=== PATIENT | female | born 1955 | race Caucasian/White ===

== ENCOUNTER 2024-01-16 14:41 | Observation (INO) ==
--- NOTE | 2024-01-16 15:19 | Emergency Department Note ---
Impression & Plan Vertigo, Ataxia ED Provider Note NAME: CHRISTOS ESPINOSA AGE: 68 SEX: F : 1955 ARRIVES VIA: Walk-In INFORMANT: Patient, ED PROVIDER(S): Arturo Goldman DO CHIEF COMPLAINT: Dizziness HPI: The patient is a 68-year-old female who presented to the emergency department for an evaluation of dizziness. The patient describes vertigo type symptoms with room spinning and disequilibrium. She has significant nausea as well as vomiting. She states that she started feeling unwell after dinner last evening. She woke this morning at 1:00 in the morning with severe symptoms. The patient denies having any headache. She denies having any difficulty hearing or tinnitus. She denies having any abdominal pain or chest pain. The patient came directly to the emergency department because symptoms were not improving throughout the day. ROS: See above HPI for pertinent positives & negatives. A total of 10 systems reviewed and were otherwise negative. PAST MEDICAL HISTORY: See Below PAST SURGICAL HISTORY: See Below FAMILY HISTORY: See Below SOCIAL HISTORY: See Below HOME MEDICATIONS: See Below ALLERGIES: See Below VITALS: See Below PHYSICAL EXAMINATION: GENERAL: The patient is awake and alert. The patient is very anxious. EYES: The conjunctivae are clear. The pupils are round and reactive. There is no nystagmus elicited. EARS, NOSE, MOUTH AND THROAT: The nose is without any evidence of any deformity. Mucous membranes are moist. Tympanic membranes were clear. NECK: The neck is nontender and supple. RESPIRATORY: Normal respiratory effort is noted there is no evidence of wheezing rhonchi or rales CARDIOVASCULAR: Regular rate and rhythm noted there no murmurs rubs or gallops normal S1 normal S2. GASTROINTESTINAL: The abdomen is soft. Abdomen is nontender. MUSCULOSKELETAL/EXTREMITIES: There is no evidence of gross deformity full range of motion is noted in the hips and shoulders. SKIN: There is no obvious evidence of any rash. There are no petechiae, pallor or cyanosis noted. NEUROLOGIC: Patient is awake alert and oriented x3 strength is symmetric patellar reflexes are 2+ bilaterally. [id number]-uhfh was symmetric. Food Service Specialist strength was symmetric. There is no facial droop. Speech was clear. MEDICAL DECISION MAKING: The patient is a 68-year-old female who presented to the emergency department for an evaluation of symptoms of vertigo. The patient had very severe vertigo. She was treated in the emergency department in usual fashion. I discussed the patient's laboratory and radiographic studies with her. Her neurologic exam would not be suggestive of a central cause but given the patient's ongoing symptoms and difficulty ambulating I did discuss her condition with the on-call [facility] hospitalist group. They have agreed to evaluate the patient in the emergency department for further management and disposition. Triage Nursing notes reviewed. Prior medical records reviewed Vital Signs: reviewed and remarkable for elevated blood pressure. Differential diagnosis: Benign positional vertigo, dehydration, hypovolemia, anemia, tumor, infection, hypoglycemia, electrolyte abnormalities, cardiac sources, intracerebral event, toxicologic, neurologic, as well as other pathologies. ER treatment provided: See below Diagnostics interpreted by me: ECG: EKG was obtained in the emergency department. My interpretation is normal sinus rhythm at 62 bpm. There was no ectopy. Nonspecific ST segment abnormalities were noted in the inferior and lateral leads. No previous tracing was available. Cardiac Monitoring: An order was placed for continuous cardiac monitoring. The monitor shows a rate of 71 bpm with sinus rhythm. Laboratory studies: As stated above and show below. Imaging studies: See below. Radiographic imaging was reviewed by myself Consultation(s): I discussed this case with Celio who is on for the [facility] hospitalist group. Past Med/Surg History Problem List (Updated 01/16/24 @ 18:40 by Arturo Goldman DO) Ataxia (Acute) Vertigo (Acute) Social History Smoking Status: Never smoker Preferred Language: Ivorian Feels Safe at Home: Yes Allergies Allergies Allergy/AdvReac Type Severity Reaction Status Date / Time No Known Allergies Allergy Unverified 01/16/24 17:59 Home Meds Home Medications Medication Instructions Recorded Confirmed Hair,Skin and Nails 1 tab PO DIRECTED 01/16/24 01/16/24 apple cider vinegar 1 cap PO DIRECTED 01/16/24 01/16/24 loratadine 10 mg tablet (Claritin) 10 mg PO DAILY 01/16/24 01/16/24 multivitamin 1 tab PO DAILY 01/16/24 01/16/24 Results & Data (ED) Vital Signs Vital Signs - 24 hr 01/16/24 14:41 01/16/24 14:41 01/16/24 14:41 Temperature 36.6 C Temperature Source Temporal Artery Scan Pulse Rate 78 Pulse Rate [Apical] Respiratory Rate 18 18 Blood Pressure 170/96 H Blood Pressure [Right Arm] Blood Pressure Mean 120 Blood Pressure Mean [Right Arm] Pulse Oximetry 99 Oxygen Delivery Method Room Air Room Air Sepsis Recent Fever Within 48 Hours No Sepsis New/Unexplained Change in Mental Status N/A Sepsis Action Taken by Nursing No Action Required 01/16/24 16:00 01/16/24 16:03 01/16/24 16:17 Temperature Temperature Source Pulse Rate 72 Pulse Rate [Apical] 71 Respiratory Rate 18 Blood Pressure Blood Pressure [Right Arm] 167/88 H Blood Pressure Mean Blood Pressure Mean [Right Arm] 114 Pulse Oximetry 96 Oxygen Delivery Method Room Air Room Air Sepsis Recent Fever Within 48 Hours Sepsis New/Unexplained Change in Mental Status Sepsis Action Taken by Nursing 01/16/24 19:00 Temperature Temperature Source Pulse Rate Pulse Rate [Apical] 71 Respiratory Rate 18 Blood Pressure Blood Pressure [Right Arm] 165/93 H Blood Pressure Mean Blood Pressure Mean [Right Arm] 117 Pulse Oximetry 98 Oxygen Delivery Method Room Air Sepsis Recent Fever Within 48 Hours Sepsis New/Unexplained Change in Mental Status Sepsis Action Taken by Long-Term Medications Current Medication List: was personally reviewed by me Laboratory Data Attestation: I reviewed the patient's lab results. 01/16/24 15:38 01/16/24 15:38 Lab Results 01/16/24 01/16/24 Range/Units 15:38 18:17 WBC 7.08 (4.8-10.8) K/ul RBC 5.25 (4.20-5.40) M/uL Hgb 14.9 (12.0-16.0) g/dl Hct 44.1 (37.0-47.0) % MCV 84.0 (80.0-100.0) fL MCH 28.4 (25.0-34.0) pg MCHC 33.8 (32.0-36.0) g/dL RDW Std Deviation 37.2 (36.4-46.3) fL RDW Coeff of Bettina 12.2 (11.5-14.5) % Plt Count 245 (130-400) K/uL MPV 11.2 (9.4-12.4) fL Immature Gran % (Auto) 0.3 % Neut % (Auto) 83.3 % Lymph % (Auto) 12.6 % [place] % (Auto) 3.2 % Eos % (Auto) 0.3 % Baso % (Auto) 0.3 % Neut # (Auto) 5.90 (1.40-6.50) K/uL Lymph # (Auto) 0.89 L (1.20-3.40) K/uL [place] # (Auto) 0.23 (0.11-0.59) K/uL Eos # (Auto) 0.02 (0.00-0.50) K/uL Baso # (Auto) 0.02 (0.00-0.20) K/uL Immature Gran # (Auto) 0.02 (0.01-0.20) K/uL Sodium 136 (136-145) mmol/L Potassium 4.0 (3.5-5.1) mmol/L Chloride 102 (98-107) mmol/L Carbon Dioxide 24 (21-32) mmol/L Anion Gap 10 (3-11) BUN 15 (6-23) mg/dl Creatinine 0.58 L (0.6-1.2) mg/dl Est Cr Clr Drug Dosing Not Reportable Est GFR ( Amer) 111.3 ml/min Est GFR (Non-Af Amer) 96.1 ml/min BUN/Creatinine Ratio 25.9 H (10-20) Glucose 145 H (70-99(Fasting)) mg/dl Calcium 10.3 (8.6-10.3) mg/dl Total Bilirubin 0.6 (0.2-1.0) mg/dl AST 22 (13-39) U/L ALT 20 (7-52) U/L Alkaline Phosphatase 103 (34-104) U/L Troponin I High Sens 3.3 (0-14) pg/ml Total Protein 8.0 (6.0-8.3) gm/dl Albumin 4.9 (3.4-5.0) gm/dl Globulin 3.1 (2.5-4.0) gm/dl Albumin/Globulin Ratio 1.6 (0.9-2) Urine Color Yellow Urine Appearance Clear (Clear) Urine pH 8.5 H (4.5-7.5) Ur Specific [place] 1.017 (1.000-1.030) Urine Protein Trace H (Negative) Urine Glucose (UA) Negative (Negative) Urine Ketones 1+ H (Negative) Urine Blood Negative (Negative) Urine Nitrite Negative (Negative) Urine Bilirubin Negative (Negative) Urine Urobilinogen Negative (Negative) Ur Leukocyte Esterase Negative (Negative) Urine WBC (Auto) 0-5 (0-5) /hpf Urine RBC (Auto) 0-2 (0-2) /hpf U Hyaline Cast (Auto) 0-2 (0-2) /lpf U Epithel Cells (Auto) 0-2 (0-2) /hpf Urine Bacteria (Auto) None Seen (None Seen) Administered Medications Discontinued Medications Sodium Chloride (Nss) 500 mls @ 999 mls/hr IV .Q31M MANUEL Stop: 01/16/24 15:45 Last Infusion: 01/16/24 18:17 Dose: Infused Documented By: Admin: 01/16/24 15:31 Dose: 999 mls/hr Documented By: [facility] Lorazepam (Lorazepam 1 Mg/1 Ml Syr Ed Inj Use) 1 mg IV ONE STA Stop: 01/16/24 15:09 Last Admin: 01/16/24 15:32 Dose: 1 mg Documented By: [facility] Meclizine HCl (Meclizine Hcl 25 Mg Tab) 25 mg PO NOW STA Stop: 01/16/24 15:09 Last Admin: 01/16/24 15:31 Dose: 25 mg Documented By: [facility] Ondansetron HCl (Ondansetron Inj 2 Mg/Ml 2 Ml Vial) 4 mg IV NOW STA Stop: 01/16/24 15:09 Last Admin: 01/16/24 15:31 Dose: 4 mg Documented By: [facility] Imaging Data Attestation: I personally reviewed and interpreted this imaging study as follows: My Impression: 1 view chest x-ray was obtained in the emergency department. My interpretation is no free air or definite infiltrate, final report below. CT of the brain was obtained in the emergency department. My interpretation is no intracranial hemorrhage or mass effect, final report below. Radiologist's Impression: Chest X-Ray 01/16/24 15:08 XR chest 1V portable CLINICAL HISTORY: vertigo TECHNIQUE: Single frontal radiograph of the chest was obtained. Comparison: None available at the time of this dictation. FINDINGS: No lines and tubes are seen. Cardiomegaly is noted. The lungs are clear. No evidence of pleural effusion or pneumothorax. IMPRESSION: No acute chest disease. Cardiomegaly is noted. ACT 112: Negative or not required by law. Electronically signed by: Luis E Olvera M.D. 01/16/2024 3:[address] 01/16/24 15:08 CT OF THE HEAD WITHOUT CONTRAST CLINICAL HISTORY: Vertigo. COMPARISON STUDY: No previous studies for comparison. CT DOSE: 547.75 mGy.cm TECHNIQUE: Helical axial images of the head were obtained without IV contrast. Automated exposure control was utilized for the study. A dose lowering technique was utilized adhering to the principles of ALARA. FINDINGS: No acute intracranial hemorrhage, midline shift or mass effect is present. White matter hypodensities favor small vessel disease. The ventricular system is unremarkable. The basal cisterns are patent. No extra-axial collections are present. There are no findings to suggest acute dural sinus thrombosis or acute territorial infarct. No significant calvarial abnormalities are present. There is trace fluid within the left mastoid air cells. IMPRESSION: No acute intracranial findings. ACT 112: Negative or not required by law. Electronically signed by: Mario Manriquez M.D. 01/16/2024 3:56 PM Discharge Plan Visit Data Chief Complaint: Dizziness Stated Complaint: DIZZINESS, NAUSEA, VOMITNG ED Provider: Arturo Goldman Discharge Problem: Vertigo, Ataxia Patient Disposition: Being Evaluated by Hospitalist Forms Stand Alone Forms: [facility] Prescriptions Prescriptions: No Action multivitamin [Multi-Vitamins] Tablet 1 tab PO DAILY loratadine [Claritin] 10 mg Tablet 10 mg PO DAILY Rx Instructions: OTC Hair,Skin and Nails 1 tab PO DIRECTED Rx Instructions: otc, unknown dose. apple cider vinegar 1 cap PO DIRECTED Rx Instructions: otc, unknown dose. Referrals Referrals: PCP,NO [Physician] -
[2024-01-16] MEDS: MECLIZINE HCL 25 MG TAB PO STA (15:31)
[2024-01-16] MEDS: ONDANSETRON INJ 2 MG/ML 2 ML VIAL IV STA (15:31)
[2024-01-16] MEDS: SODIUM CHLORIDE 0.9% 500 ML IV SCH (15:31)
[2024-01-16] MEDS: LORazepam 1 MG/1 ML SYR ED Inj Use IV STA (15:32)
[2024-01-16 15:58] LABS: Basophils # (auto) 0.02 K/uL (0.00-0.20); Basophils % (auto) 0.3 %; Eosinophils # (auto) 0.02 K/uL (0.00-0.50); Eosinophils % (auto) 0.3 %; Hematocrit (blood only) 44.1 % (37.0-47.0); Hemoglobin 14.9 g/dl (12.0-16.0); Immature Granulocytes # (auto) 0.02 K/uL (0.01-0.20); Immature Granulocytes % (auto) 0.3 %; Lymphocytes # (auto) 0.89 K/uL (1.20-3.40); Lymphocytes % (auto) 12.6 %; Mean Corpuscular Hemoglobin 28.4 pg (25.0-34.0); Mean Corpuscular Hgb Conc 33.8 g/dL (32.0-36.0); Mean Platelet Volume 11.2 fL (9.4-12.4); Monocytes # (auto) 0.23 K/uL (0.11-0.59); Monocytes % (auto) 3.2 %; Neutrophils % (auto) 83.3 %; Platelet Count 245 K/uL (130-400); RDW Coefficient of Variation 12.2 % (11.5-14.5); RDW Standard Deviation 37.2 fL (36.4-46.3); Red Blood Count 5.25 M/uL (4.20-5.40); White Blood Count 7.08 K/ul (4.8-10.8)
--- NOTE | 2024-01-16 15:58 | CT Scan Report ---
CT OF THE HEAD WITHOUT CONTRAST CLINICAL HISTORY: Vertigo. COMPARISON STUDY: No previous studies for comparison. CT DOSE: 547.75 mGy.cm TECHNIQUE: Helical axial images of the head were obtained without IV contrast. Automated exposure con trol was utilized for the study. A dose lowering technique was utilized adhering to the principles o f ALARA. FINDINGS: No acute intracranial hemorrhage, midline shift or mass effect is present. White matter hyp odensities favor small vessel disease. The ventricular system is unremarkable. The basal cisterns are patent. No extra-axial collections are present. There are no findings to suggest acute dural sinus t hrombosis or acute territorial infarct. No significant calvarial abnormalities are present. There is trace fluid within the left mastoid air cells. IMPRESSION: No acute intracranial findings. ACT 112: Negative or not required by law. Electronically signed by: Mario Manriquez M.D. 01/16/2024 3:56 PM
[2024-01-16 16:14] LABS: Alanine Aminotransferase 20 U/L (7-52); Albumin Globulin Ratio 1.6 (0.9-2); Albumin Level 4.9 gm/dl (3.4-5.0); Alkaline Phosphatase 103 U/L (34-104); Anion Gap 10 (3-11); Aspartate Aminotransferase 22 U/L (13-39); BUN Creatinine Ratio 25.9 (10-20); Bilirubin,Total 0.6 mg/dl (0.2-1.0); Blood Urea Nitrogen 15 mg/dl (6-23); Calcium 10.3 mg/dl (8.6-10.3); Carbon Dioxide 24 mmol/L (21-32); Chloride 102 mmol/L (98-107); Est GFR (African American) 111.3 ml/min; Est GFR (Non-African American) 96.1 ml/min; Globulin 3.1 gm/dl (2.5-4.0); Glucose 145 mg/dl (70-99(Fasting)); Sodium 136 mmol/L (136-145)
[2024-01-16 16:20] LABS: Troponin I High Sensitivity 3.3 pg/ml (0-14)
[2024-01-16 19:03] LABS: Appearance Urine Clear (Clear); Bacteria Urine Automated None Seen (None Seen); Bilirubin Urine Negative (Negative); Blood Urine Negative (Negative); Cast Urine Automated 0-2 /lpf (0-2); Color Urine Yellow; Epithelial Cell Urine Auto 0-2 /hpf (0-2); Glucose Urine UA Negative (Negative); Ketones Urine 1+ (Negative); Leukocyte Esterase Urine Negative (Negative); Nitrite Urine Negative (Negative); Protein Urine Trace (Negative); RBC Urine Automated 0-2 /hpf (0-2); Specific Gravity Urine 1.017 (1.000-1.030); Urobilinogen Urine Negative (Negative); WBC Urine Automated 0-5 /hpf (0-5); pH Urine 8.5 (4.5-7.5)
--- NOTE | 2024-01-16 19:49 | History & Physical Report ---
Date of Service January 16, 2024 Assessment & Plan (1) Benign paroxysmal positional vertigo of right ear: (2) Hyperglycemia, unspecified: Plan Patient is a 68-year-old female with acute onset of vertigo and ataxia. Her symptoms are significant to the point where she has significant nausea and vomiting and unable to ambulate safely at home. She requires hospital level care for ongoing interventions, studies and treatments. Admit to a monitored unit, low suspicion for arrhythmia can consider discontinuing within 24 hours Schedule meclizine and Valium to provide symptom control of her significant vertigo PT/OT evaluation for Silviano maneuvers and vestibular evaluation MRI of the brain to rule out other acute etiology for the patient's symptoms, highly suspect patient has BPV with a positive Amee-Hallpike maneuver when looking to the right Check TSH Check hemoglobin A1c, nonfasting glucose of 145 in the ED Antiemetics as needed Daughter and at bedside, updated the plan of care. History of Present Illness Chief Complaint: Some dizziness and ataxia Primary Care Provider: Terence Coombs MD Patient is a 68-year-old female presented to the emergency department earlier this afternoon with complaints of some dizziness and difficulty walking. In the emergency room laboratory and imaging evaluation was unremarkable. She was treated with meclizine and Zofran and lorazepam. Her symptoms improved slightly but she still had significant unsteadiness and gait and still somewhat nauseated. She was referred to our service for further evaluation. Time my evaluation the patient was sitting still and feeling better. She states that she noticed the symptoms started around 2 AM when she woke up to go to the bathroom. She is found it very difficult to walk to the bathroom and unsteady with her gait. She does not describe classic vertigo but describes as though she felt as though she was moving back and forth. She essentially stayed in bed throughout the rest of the patch setter. She was nauseated earlier and took some Tums that her gave her but really could not get up out of bed and walk very well and that is what prompted evaluation emergency room. She denies any fever or chills, no cough or cold symptoms, no upper respiratory infection symptoms. She has never had anything like this before. She denies any unilateral weakness. Family at the bedside denies any slurred speech or facial droop. She states that really just this feels as though her balance is off and has some poor coordination. No new problems with her bowels or bladder and was feeling well up until this morning. Denies any other real significant medical history. Allergies Allergy/AdvReac Type Severity Reaction Status Date / Time No Known Allergies Allergy Unverified 01/16/24 17:59 Home Medications Medication Instructions Recorded Confirmed Type Hair,Skin and Nails 1 tab PO DIRECTED 01/16/24 01/16/24 History apple cider vinegar 1 cap PO DIRECTED 01/16/24 01/16/24 History loratadine 10 mg tablet (Claritin) 10 mg PO DAILY 01/16/24 01/16/24 History multivitamin 1 tab PO DAILY 01/16/24 01/16/24 History Past Med/Surg History Problem List (Updated 01/16/24 @ 19:49 by Efren Pritchett DO) Hyperglycemia, unspecified Benign paroxysmal positional vertigo of right ear Ataxia (Acute) Vertigo (Acute) Social History Smoking Status: Never smoker Preferred Language: Slovak Feels Safe at Home: Yes Review of Systems Review of Systems: Pertinent positive and negative review of systems as mentioned in the HPI Physical Exam Physical Exam: Constitutional: Alert, ill in appearance, nontoxic HEENT: Mucous membranes moist. Sclera clear Neck: Soft, no adenopathy Lungs: Clear to auscultation, decreased, no wheezes rales or rhonchi CV: S1-S2, regular Abdomen: Soft, nontender, nondistended Extremities: No significant edema Musculoskeletal: No significant joint tenderness Neuro: Positive Amee-Hallpike maneuver when looking to the right with nystagmus, reproduction of vertigo, nausea and vomiting. No other focal findings Psych: Cooperative, normal mood Results & Data Results & Data Vital Signs (Past 12 Hours) Vital Signs Temp Pulse Pulse Resp BP BP Pulse Ox 01/16/24 19:00 71 18 165/93 H 98 01/16/24 16:17 71 18 167/88 H 96 01/16/24 16:03 72 01/16/24 16:00 01/16/24 14:41 18 01/16/24 14:41 01/16/24 14:41 36.6 C 78 18 170/96 H 99 O2 Del Method 01/16/24 19:00 Room Air 01/16/24 16:17 Room Air 01/16/24 16:03 01/16/24 16:00 Room Air 01/16/24 14:41 01/16/24 14:41 Room Air 01/16/24 14:41 Room Air Diagnostic Findings Reviewed imaging, laboratory and diagnostic studies. Pertinent findings as below. Personally reviewed EKG, normal sinus rhythm Personally reviewed chest x-ray no acute cardiopulmonary abnormalities Reviewed head CT report, no acute abnormalities Urinalysis unremarkable Basic metabolic profile significant for some hyperglycemia CBC unremarkable Code Status & VTE Plan VTE Prophylaxis Plan VTE Prophylaxis will be ordered: Yes
[2024-01-16] MEDS ORDERED: PROMETHAZINE 6.25 MG/50.25 ML BAG IV PRN (21:31)
[2024-01-16] MEDS ORDERED: ACETAMINOPHEN 325 MG TAB PO PRN (21:31)
[2024-01-16] MEDS: MECLIZINE HCL 25 MG TAB PO SCH (21:50)
[2024-01-16] MEDS: ONDANSETRON INJ 2 MG/ML 2 ML VIAL IV PRN (21:50)
[2024-01-16] MEDS: diazePAM 2 MG TABLET PO SCH (21:50)
[2024-01-16] MEDS: SODIUM CHLORIDE 0.9% 1,000 ML IV SCH (21:50)
[2024-01-17 07:05] LABS: BUN Creatinine Ratio 18.2 (10-20); Calcium 8.6 mg/dl (8.6-10.3); Creatinine Clr Calc Pharmacy 85.1 ml/min; Est GFR (African American) 113.3 ml/min; Est GFR (Non-African American) 97.7 ml/min; Potassium 3.4 mmol/L (3.5-5.1)
[2024-01-17 07:20] LABS: Thyroid Stimulating Hormone 1.481 uIu/ml (0.300-4.500)
[2024-01-17 07:59] LABS: Estimated Average Glucose 128 mg/dl; Hemoglobin A1C 6.1 % (4.5-5.6)
--- NOTE | 2024-01-17 08:55 | Electrocardiogram Report ---
Test Reason : Blood Pressure : */* mmHG Vent. Rate : 62 BPM Atrial Rate : 62 BPM P-R Int : 140 ms QRS Dur : 82 ms QT Int : 472 ms P-R-T Axes : 60 65 39 degrees QTcB Int : 479 ms Normal sinus rhythm Left atrial enlargement Diffuse Minor Nonspecific ST abnormality Abnormal ECG No previous ECGs available Confirmed by Owne Scott ([id number]) on 01/17/2024 8:55:55 AM Referred By: Confirmed By: Owen Scott
--- NOTE | 2024-01-17 09:19 | Hospitalist Progress Note ---
Date of Service January 17, 2024 Assessment & Plan (1) Benign paroxysmal positional vertigo of right ear: (2) Pre-diabetes: (3) Hypokalemia: Plan Patient is a 68-year-old female who presented to the ED with acute onset of vertigo and ataxia. CT head with no acute abnormality. Acute onset vertigo/ataxia- Amee Hallpike positive in ED. TSH 1.4. No evidence of infection. Suspected BPPV and on trial of meclizine/valium with significant improvement. MRI brain negative for acute pathology. PT OT eval pending. Pre diabetes- A1c 6.1%. Diet control and follow up with PCP for further management. Discussed with patient at bedside. Hypokalemia- repleted, recheck in am DVT ppx- sc heparin Dispo- Discharge home pending PT OT eval. Time spent- 35 mins Admission and Anticipated Discharge Date Admission Date: January 16, 2024 Subjective Patient was seen and examined at bedside. She feels much better. She had MRI brain which was negative. States she has no more N/V and tolerating diet well. She also reports she ambulated without issues. Review of Systems Review of Systems: All systems reviewed & are unremarkable except as noted in Subjective Physical Exam Physical Exam: General: Sitting comfortably in bed, not in distress, on room air HEENT: EOMI, REBECA, MMM Chest: Clear breath sounds bilaterally, no wheezes or crackles CVS: Regular rate and rhythm, normal heart sounds, no murmur Abdomen: Soft, non tender, not distended, normal bowel sounds Neuro: Awake, alert, oriented, conversing well, non focal. She was able to turn her head sideways without any vertigo. Extremities: No cyanosis, clubbing or edema Results & Data Results & Data Vital Signs (Past 12 Hours) Vital Signs Temp Pulse Pulse Pulse Resp BP BP 01/17/24 07:40 36.8 C 60 18 143/77 H 01/17/24 07:25 56 L 01/17/24 01:21 36.7 C 61 16 132/74 01/16/24 21:55 66 01/16/24 21:25 36.3 C L 68 20 174/81 H 01/16/24 21:20 67 Pulse Ox O2 Del Method 01/17/24 07:40 96 Room Air 01/17/24 07:25 01/17/24 01:21 95 Room Air 01/16/24 21:55 01/16/24 21:25 99 Room Air 01/16/24 21:20 Laboratory Results Short CBC 01/16/24 Range/Units 15:38 WBC 7.08 (4.8-10.8) K/ul Hgb 14.9 (12.0-16.0) g/dl Hct 44.1 (37.0-47.0) % Plt Count 245 (130-400) K/uL BMP 01/16/24 01/17/24 15:38 06:15 Sodium 136 140 Potassium 4.0 3.4 L Chloride 102 109 H Carbon Dioxide 24 24 BUN 15 10 Creatinine 0.58 L 0.55 L Glucose 145 H 91 Calcium 10.3 8.6 Liver Function 01/16/24 Range/Units 15:38 Total Bilirubin 0.6 (0.2-1.0) mg/dl AST 22 (13-39) U/L ALT 20 (7-52) U/L Alkaline Phosphatase 103 (34-104) U/L Albumin 4.9 (3.4-5.0) gm/dl Urine 01/16/24 Range/Units 18:17 Urine Color Yellow Urine Appearance Clear (Clear) Urine pH 8.5 H (4.5-7.5) Ur Specific [place] 1.017 (1.000-1.030) Urine Protein Trace H (Negative) Urine Glucose (UA) Negative (Negative)
[2024-01-17] MEDS: POTASSIUM CHLORIDE 10 MEQ TABCR PO ONE (09:30)
[2024-01-17] MEDS: GADOBUTROL 10ML VIAL IV ONE (10:09)
--- NOTE | 2024-01-17 10:28 | Magnetic Resonance Report ---
MRI OF THE BRAIN COMBO CLINICAL HISTORY: Vertigo COMPARISON STUDY: CT of the brain dated 01/16/2024. TECHNIQUE: MRI of the brain was performed utilizing various T1 and T2-weighted sequences in the axial , sagittal, and coronal planes. Contrast-enhanced sequences were acquired following the administratio n of 6 cc of Gadavist. FINDINGS: Brain parenchyma: There is [id number] microangiopathic change. There is no hemorrhage or mass e ffect. There is no restricted diffusion to suggest acute ischemia. No enhancing mass lesion is identi fied on the postcontrast images. Ventura-white matter differentiation is preserved. No extra-axial fluid collection is seen. The cerebellar tonsils are normal in configuration. Ventricles, sulci, and cisterns: Normal in configuration. Pituitary and sella: Unremarkable. Intracranial vasculature: Normal flow voids are maintained at the skull base. Orbits: The bony orbits are grossly intact. Orbital contents are normal in appearance noting bilatera l colobomas. Sinuses and mastoids: There are bilateral mastoid effusions, left larger than right. The paranasal si nuses are clear. Calvarium: Unremarkable. Cervical cord: Partially visualized cervical spinal cord is normal in morphology and signal intensity . IMPRESSION: No acute intracranial abnormality is identified. ACT 112: Negative or not required by law. Electronically signed by: King Barton M.D. 01/17/2024 10:25 AM
--- OUTSIDE RECORDS SUMMARY | 2024-01-17 14:09 | External Medical Summary | Summary of Care ---
Author Name Unknown Organization [facility] Address [address] [place] [address] Phone [phone] Care Team Providers Care Living Supervisor Name Role Phone Terence Coombs MD Primary Care Provide r Reason for Visit * Reason Comments Re-Check Encounter Details Date Type Department Care Team ([facility] st Contact Info) Description 11/14/2023 4:00 PM EDT Office Visit Family Medicine [address] [phone] Terence Coombs MD [address] [place] [address] [place] [id number] Allergic rhinitis due to other allergic trigger, unspecified seasonality*; Encounter for screening mammogram for breast cancer; Dyslipidemia, goal LDL below 160 Allergies No known active allergiesdocumented as of this encounter (statuses as of 11/14/2023) Medications Medication Sig Dispensed Refills Start Date End Date Status Loratadine 10 MG Oral Tablet Take 1 Tablet by mouth in the morning. Active Multiple Vitamins-Minerals (HAIR SKIN AND NAILS FORMULA) TABS Take by mouth. Active documented as of this encounter (statuses as of 11/14/2023) Active Problems Problem Noted Date Diagnosed Date History of basal cell carcinoma 11/15/2022 Hx of nonmelanoma skin cancer 12/20/2019 Overview: basal cell carcinoma (L lateral upper cheek 12/2019) H/O dysplastic nevus 12/20/2019 Overview: Mildly atypical nevus (L lateral breast) ADVANCE DIRECTIVE INFORMATION 06/11/2007 Overview: No, Advance Directive brochure given to patient. Dyslipidemia, goal LDL below 160 Overview: ICD-10 update of inactive term Allergic rhinitis documented as of this encounter (statuses as of 11/14/2023) Immunizations Name Administration Dates Next Due COVID-19 mRNA, LNP-s, No Pre serve, 2-Dose Series (Moderna) 11/06/2020,10/09/2020 Seasonal Influenza, PF, 6 M & above, IM , (FluLaval or Fluzone) 06/11/2019 Seasonal Influenza, Split, IIV3, With Preserve, Inj 03/20/2015 TDAP (age 10 and older)(Boostrix) 10/01/2018 documented as of this encounter Social History Tobacco Use Types Packs/Day Years Used Date Smoking Tobacco: Never Smokeless Tobacco: Never Tobacco Cessation:Counseling Given: Not Answered Alcohol Use Standard Drinks/Week Comments No 0 (1 standard drink = 0.6 oz pur e alcohol) PHQ-2 Answer Date Recorded PHQ-2 Score 0 10/07/2019 Sex and Gender Information Value Date Recorded Sex Assigned at Not on file Gender Identity Not on file Sexual Orientation Not on file Job Start Date Occupation Industry Not on file Not on file Not on file documented as of this encounter Last Filed Vital Signs Vital Sign Reading Time Taken Comments Blood Pressure 136/80 11/14/2023 3:50 PM EDT Pulse 85 11/14/2023 3:50 PM EDT Temperature 35.7 C (96.2 F) 11/14/2023 3:50 PM ED T Respiratory Rate 16 11/14/2023 3:50 PM EDT Oxygen Saturation - - Inhaled Oxygen Concentration - - Weight 60.8 kg (134 lb 2 oz) 11/14/2023 3:50 PM EDT Height - - Body Mass Index 23.01 11/15/2022 10:23 AM EDT documented in this encounter Progress Notes * Terence Coombs MD - 11/14/2023 3:53 PM EDT Subjective: Vidhi Beal is a 68 year old female. Chief Complaint Patient presents with Re-Check HPI: Brief Clinical History Ms. Beal is a 68 year old woman last seen in Family Medicine 11 months ago (11-15-22). She is not due for eval of any conditions. Would like to have mammogram done at [facility]. Usually has to get extra views done there anyway. Was seen at Urgent Care in September with ear clogging and not being able to hear and nasal congestion. Was given amoxicillin and had her ears cleaned out and is feeling better now. Taking loratadine for allergies and is working well. Denies any complaints today. Was worried her BP would be high because she was rushing to get to herappointment on time. Declines vaccines. Results for orders placed or performed in visit on 02/10/23 SURGICAL PATHOLOGY Result Value Ref Range Final Diagnosis A. Skin, R upper arm, shave: Benign melanocytic nevus with congenital features Clinical History See Order Comments Order Comments 1A. R upper arm-3x3mm light-medium brown irregular macule. Nevus, r/o atypia Gross Description A. Skin. shave Received in formalin with a container labeled with "Vidhi Beal", "[id number]", "1955" and " right upper arm". Received is a 0.8 x 0.6 cm skin shave. The skin surface has a nolasco to light brown, centrally located, irregularly-shaped, dull macule measuring 0.3 x 0.3 cm, which extends to within 0.1 cm of the closest margin. The underlying tissue is inked. The specimen is trisected and submitted in cassette A1. Gross By: Photographic images and diagrams represent anaya findings in this case; they are not intended to replace a complete review of the final diagnostic report. The following statement applies to Flow Cytometry, Histology, In situ Hybridization Assays and Molecular Genetics. This test was developed and performed at [facility] and its performance characteristics determined by [employer]. It has not been cleared or approved by the U.S. Food and Drug Administration. The FDA has determined that such clearance or approval is not necessary. This test is used for clinical purposes. It should not be regarded as investigationalor for research. Special stains, including histochemical stains, and studies using immunologic and DAVIS methodology (where applicable) are performed with appropriate positive and negative control reactions. PHM: Patient Active Problem List Diagnosis ADVANCE DIRECTIVE INFORMATION Allergic rhinitis Hx of nonmelanoma skin cancer H/O dysplastic nevus History of basal cell carcinoma Current Outpatient Medications Medication Sig Dispense Refill Loratadine 10 MG Oral Tablet Take 1 Tablet by mouth in the morning. Multiple Vitamins-Minerals (HAIR SKIN AND NAILS FORMULA) TABS Take by mouth. No current facility-administered medications for this visit. Past Medical History: Diagnosis Date Allergic rhinitis Hyperlipidemia LDL goal < 130 Past Surgical History: Procedure Laterality Date , INDUCED BY D&E BIOPSY OF BREAST, OPEN Left 1980 DELIVERY 1984 COLONOSCOPY, DIAGNOSTIC (RECTUM) 11/17/2009 wnl COLONOSCOPY, DIAGNOSTIC (RECTUM) 02/16/2021 normal, repeat 10 yrs / COLONOSCOPY FLEXIBLE PROXIMAL DIAGNOSTIC performed by Ebony Ortega MD at END[facility]COPY [facility] INFORMATION 1981 breast biopsy MAMMOGRAM SCREENING BILATERAL 08/15/2012 heterogeneously dense right breast cysts, category 2 benign REMOVAL OF TONSILS, UNDER AGE 14 Social History Socioeconomic History Marital status: Spouse name: Not on file Number of children: Not on file Years of education: Not on file Highest education level: Not on file Occupational History Not on file Tobacco Use Smoking status: Never Smokeless tobacco: Never Vaping Use Vaping status: Never Used Substance and Sexual Activity Alcohol use: No Drug use: No Sexual activity: Yes Other Topics Concern Not on file Social History Narrative Not on file Social Determinants of Health Financial Resource Strain: Not on file Food Insecurity: Not on file Transportation Needs: Not on file Physical Activity: Not on file Stress: Not on file Social Connections: Not on file Intimate Partner Violence: Not on file Housing Stability: Not on file Review of patient's allergies indicates: No Known Allergies Lipid Panel Results: Results for orders placed or performed in visit on 11/12/21 LIPID PANEL WITH DIRECT LDL IF TG IS HIGH Result Value Ref Range Triglycerides 160 <=174 mg/dL Cholesterol 246 (H) <200 mg/dL HDL Cholesterol 63 >49 mg/dL Non-HDL Cholesterol 183 (H) <=159 mg/dL LDL Cholesterol 151 (H) <=129 mg/dL Objective: BP 136/80 | Pulse 85 | Temp 35.7 C (96.2 F) (Tympanic) | Resp 16 | Wt 60.8 kg (134 lb 2 oz) | BMI 23.01 kg/m | BSA 1.66 m Physical Exam: General: alert, healthy, no distress, well nourished, and well developed Head: Normocephalic, No masses, lesions, tenderness or abnormalities Eye Exam: PERRLA, extraocular movements intact, conjunctiva are pink and non- injected, sclera clear Ears: External ears normal, Canals clear, TM's Normal Nose: no mucosal erythema, no mucosal edema, no purulent discharge Oropharynx: no exudate, no erythema, lips, buccal mucosa, and tongue normal, and mucous membranes are moist Neck: supple, no adenopathy, no bruits Heart: regular rate & rhythm, no murmur, and no gallops Lungs: chest symmetric with normal AP diameter, no chest deformities noted, no chest wall tenderness, lungs clear to auscultation Extremities: no joint deformities, effusion, or inflammation, no edema, no clubbing, no cyanosis Neuro Exam: alert & oriented x 3 with fluent speech, no focal motor/sensory deficits, gait normal Extensive ROS Constitutional (f/c/wt/vision/hearing): see above hpi Resp (cough/sob/mohr): Negative CV (cp/palp/fluttering/diaphoresis/mohr/pnd):Negative GI (n/v/d/hrtburn): Negative Endo (hair/cold or heat intol/ 3 p's): Negative Neuro (shaking/weak/fatigu/parasthesi/): Negative Skin (rash/easy bruis/xerosis): Negative Psy (si/hi/halluc/): Negative (nocturia/hesit/drib/sexual review): Negative Lymph (swollen glands/b sx's/: Negative ASSESSMENT: Allergic rhinitis due to other allergic trigger, unspecified seasonality (Primary)--controlled withloratadine. Encounter for screening mammogram for breast cancer - MAMMOGRAM SCREENING JARETT BILATERAL; Future; Expected date: 01/01/2024 Dyslipidemia, goal LDL below 160--reviewed prior labs. Declines labs today or medication. Follow Up: Return in 1 year (on 11/13/2024) for change mammogram lui from MV to GW per pt request , Clinic Visit. | For: change mammogram lui from MV to GW per pt request , Clinic Visit | Check-out note: change mammogram lui from MV to GW per pt request PLAN: Continue present medication(s): Study(ies) ordered: Screening mammogram. Patient education: Discussed vaccines and declines. Continue loratadine as needed for allergies. Follow up: in 1 year(s). Terence Coombs MD documented in this encounter Nursing Notes * Katja Tsang LPN - 11/14/2023 3:47 PM EDT 1 yr check documented in this encounter Plan of Treatment Upcoming Encounters Date Type Department Care Team (Late st Contact Info) Description 01/01/2024 8:15 AM EDT Imaging Radiology [address] [place] [id number] 03/25/2024 8:40 AM EDT Office Visit [address] [address] Albina Olivares PA-C [address] [place] [address] [place] [id number] 11/26/2024 4:00 PM EDT Office Visit Family Medicine [address] [place] [phone] Terence Coombs MD [address] [place] [address] [place] [id number] Scheduled Orders Name Type Priority Associated Diagnoses Orde r Schedule MAMMOGRAM SCREENING JARETT BILATERAL Medical Imaging Routine Encounter for screening mammogram for breast cancer Expected: 01/01/2024 (Approximate), Expires: 12/13/2024 Scheduled Procedures Name Priority Associated Diagnoses Date/Ti me COLONOSCOPY FLEXIBLE PROXIMAL DIAGNOSTIC Recall Screen for colon cancer Health Maintenance Due Date Last Done Comments DXA Scan 1957 Cologuard 2002 Fecal Occult Blood Test 2002 Sigmoidoscopy 2002 Zoster Vaccines (1 of 2) 2007 Depression Screening 10/06/2020 10/07/2019 Pneumococcal Vaccine: 65+ Years (1 of 1 - PCV) 2022 COVID-19 Vaccine (3 - 2022- season) 2023 11/06/2020, 10/09/2020 Mammogram 01/18/2024 01/17/2023, 12/31, 12/26/2022, Additional history exists Influenza Vaccine (FLU shot) (Season Ended) 2024 06/11/2019, 03/20/2015 Lipid Panel 11/12/2026 11/12/2021, 07/2018, 08/11/2015, Additional history exists DTaP,Tdap,and Td Vaccines (2 - Td or Tdap) 10/01/2028 10/01/2018 Colonoscopy 02/16/2031 02/16/2021, 01/31, 11/17/2009 Colorectal Cancer Screening 02/16/2031 Pap Smear Discontinued 10/13/2020, 04/02, 04/04/2014, Additional history exists GARDASIL-HPV IMMUNIZATION SERIES Aged Out No longer eligible based on patient's age to complete this topic Hepatitis B Aged Out No longer eligi ble based on patient's age to complete this topic MENINGOCOCCAL (MENACTRA/MENVEO) Aged Out No longer eligible based on patient's age to complete this topic documented as of this encounter Medical Devices Not on filedocumented as of this encounter Visit Diagnoses Diagnosis Allergic rhinitis due to other allergic trigger, unspecified seasonality- Primary Encounter for screening mammogram for breast cancer Dyslipidemia, goal LDL below 160 Other and unspecified hyperlipidemia documented in this encounter Care Teams Living Supervisor Relationship Specialty Start Date End Date Terence Coombs MD [address] [place] [address] [place] [id number] PCP - General Family Medicine 04/12/15 documented as of this encounter
[2024-01-17 15:11] VITALS: PULSE 68
--- NOTE | 2024-01-17 15:11 | Discharge Summary ---
Date of Service January 17, 2024 Admission HPI Per Admitting Provider Patient is a 68-year-old female presented to the emergency department earlier this afternoon with complaints of some dizziness and difficulty walking. In the emergency room laboratory and imaging evaluation was unremarkable. She was treated with meclizine and Zofran and lorazepam. Her symptoms improved slightly but she still had significant unsteadiness and gait and still somewhat nauseated. She was referred to our service for further evaluation. Time my evaluation the patient was sitting still and feeling better. She states that she noticed the symptoms started around 2 AM when she woke up to go to the b athroom. She is found it very difficult to walk to the bathroom and unsteady with her gait. She does not describe classic vertigo but describes as though she felt as though she was moving back and forth. She essentially stayed in bed throughout the rest of the die fitter. She was nauseated earlier and took some Tums that her gave her but really could not get up out of bed and walk very well and that is what prompted evaluation emergency room. She denies any fever or chills, no cough or cold symptoms, no upper respiratory infection symptoms. She has never had anything like this before. She denies any unilateral weakness. Family at the bedside denies any slurred speech or facial droop. She states that really just this feels as though her balance is off and has some poor coordination. No new problems with her bowels or bladder and was feeling well up until this morning. Denies any other real significant medical history. Admission Exam Per Admitting Provider Constitutional: Alert, ill in appearance, nontoxic HEENT: Mucous membranes moist. Sclera clear Neck: Soft, no adenopathy Lungs: Clear to auscultation, decreased, no wheezes rales or rhonchi CV: S1-S2, regular Abdomen: Soft, nontender, nondistended Extremities: No significant edema Musculoskeletal: No significant joint tenderness Neuro: Positive Columbia-Hallpike maneuver when looking to the right with nystagmus, reproduction of vertigo, nausea and vomiting. No other focal findings Psych: Cooperative, normal mood Principal Diagnosis BPV, right Discharge Exam General: Sitting comfortably in bed, not in distress, on room air HEENT: EOMI, REBECA, MMM Chest: Clear breath sounds bilaterally, no wheezes or crackles CVS: Regular rate and rhythm, normal heart sounds, no murmur Abdomen: Soft, non tender, not distended, normal bowel sounds Neuro: Awake, alert, oriented, conversing well, non focal. She was able to turn her head sideways without any vertigo. Extremities: No cyanosis, clubbing or edema Discharge Data Allergies Allergy/AdvReac Type Severity Reaction Status Date / Time No Known Allergies Allergy Unverified 01/16/24 17:59 Consultations 01/16/24 18:36 ED Decision to Admit Stat Ordered Studies 01/16/24 15:08 CT head/brain wo con Stat 01/17/24 00:00 MR brain wo/w con Routine Laboratory Results WBC 7.08 K/ul (4.8-10.8) 01/16/24 15:38 RBC 5.25 M/uL (4.20-5.40) 01/16/24 15:38 Hgb 14.9 g/dl (12.0-16.0) 01/16/24 15:38 Hct 44.1 % (37.0-47.0) 01/16/24 15:38 MCV 84.0 fL (80.0-100.0) 01/16/24 15:38 MCH 28.4 pg (25.0-34.0) 01/16/24 15:38 MCHC 33.8 g/dL (32.0-36.0) 01/16/24 15:38 RDW Std Deviation 37.2 fL (36.4-46.3) 01/16/24 15:38 RDW Coeff of Bettina 12.2 % (11.5-14.5) 01/16/24 15:38 Plt Count 245 K/uL (130-400) 01/16/24 15:38 MPV 11.2 fL (9.4-12.4) 01/16/24 15:38 Immature Gran % (Auto) 0.3 % 01/16/24 15:38 Neut % (Auto) 83.3 % 01/16/24 15:38 Lymph % (Auto) 12.6 % 01/16/24 15:38 Bonner % (Auto) 3.2 % 01/16/24 15:38 Eos % (Auto) 0.3 % 01/16/24 15:38 Baso % (Auto) 0.3 % 01/16/24 15:38 Neut # (Auto) 5.90 K/uL (1.40-6.50) 01/16/24 15:38 Lymph # (Auto) 0.89 K/uL (1.20-3.40) L 01/16/24 15:38 Bonner # (Auto) 0.23 K/uL (0.11-0.59) 01/16/24 15:38 Eos # (Auto) 0.02 K/uL (0.00-0.50) 01/16/24 15:38 Baso # (Auto) 0.02 K/uL (0.00-0.20) 01/16/24 15:38 Immature Gran # (Auto) 0.02 K/uL (0.01-0.20) 01/16/24 15:38 Sodium 140 mmol/L (136-145) 01/17/24 06:15 Potassium 3.4 mmol/L (3.5-5.1) L 01/17/24 06:15 Chloride 109 mmol/L (98-107) H 01/17/24 06:15 Carbon Dioxide 24 mmol/L (21-32) 01/17/24 06:15 Anion Gap 7 (3-11) 01/17/24 06:15 BUN 10 mg/dl (6-23) 01/17/24 06:15 Creatinine 0.55 mg/dl (0.6-1.2) L 01/17/24 06:15 Est Cr Clr Drug Dosing 85.1 ml/min 01/17/24 06:15 Est GFR ( Amer) 113.3 ml/min 01/17/24 06:15 Est GFR (Non-Af Amer) 97.7 ml/min 01/17/24 06:15 BUN/Creatinine Ratio 18.2 (10-20) 01/17/24 06:15 Glucose 91 mg/dl (70-99(Fasting)) 01/17/24 06:15 Estimat Average Glucose 128 mg/dl 01/17/24 06:15 Hemoglobin A1c 6.1 % (4.5-5.6) H 01/17/24 06:15 Calcium 8.6 mg/dl (8.6-10.3) 01/17/24 06:15 Total Bilirubin 0.6 mg/dl (0.2-1.0) 01/16/24 15:38 AST 22 U/L (13-39) 01/16/24 15:38 ALT 20 U/L (7-52) 01/16/24 15:38 Alkaline Phosphatase 103 U/L (34-104) 01/16/24 15:38 Troponin I High Sens 3.3 pg/ml (0-14) 01/16/24 15:38 Total Protein 8.0 gm/dl (6.0-8.3) 01/16/24 15:38 Albumin 4.9 gm/dl (3.4-5.0) 01/16/24 15:38 Globulin 3.1 gm/dl (2.5-4.0) 01/16/24 15:38 Albumin/Globulin Ratio 1.6 (0.9-2) 01/16/24 15:38 TSH 1.481 uIu/ml (0.300-4.500) 01/17/24 06:15 Urine Color Yellow 01/16/24 18:17 Urine Appearance Clear (Clear) 01/16/24 18:17 Urine pH 8.5 (4.5-7.5) H 01/16/24 18:17 Ur Specific [place] 1.017 (1.000-1.030) 01/16/24 18:17 Urine Protein Trace (Negative) H 01/16/24 18:17 Urine Glucose (UA) Negative (Negative) 01/16/24 18:17 Urine Ketones 1+ (Negative) H 01/16/24 18:17 Urine Blood Negative (Negative) 01/16/24 18:17 Urine Nitrite Negative (Negative) 01/16/24 18:17 Urine Bilirubin Negative (Negative) 01/16/24 18:17 Urine Urobilinogen Negative (Negative) 01/16/24 18:17 Ur Leukocyte Esterase Negative (Negative) 01/16/24 18:17 Urine WBC (Auto) 0-5 /hpf (0-5) 01/16/24 18:17 Urine RBC (Auto) 0-2 /hpf (0-2) 01/16/24 18:17 U Hyaline Cast (Auto) 0-2 /lpf (0-2) 01/16/24 18:17 U Epithel Cells (Auto) 0-2 /hpf (0-2) 01/16/24 18:17 Urine Bacteria (Auto) None Seen (None Seen) 01/16/24 18:17 Impressions Chest X-Ray 01/16/24 15:08 XR chest 1V portable CLINICAL HISTORY: vertigo TECHNIQUE: Single frontal radiograph of the chest was obtained. Comparison: None available at the time of this dictation. FINDINGS: No lines and tubes are seen. Cardiomegaly is noted. The lungs are clear. No evidence of pleural effusion or pneumothorax. IMPRESSION: No acute chest disease. Cardiomegaly is noted. ACT 112: Negative or not required by law. Electronically signed by: Luis E Olvera M.D. 01/16/2024 3:[address] 01/16/24 15:08 CT OF THE HEAD WITHOUT CONTRAST CLINICAL HISTORY: Vertigo. COMPARISON STUDY: No previous studies for comparison. CT DOSE: 547.75 mGy.cm TECHNIQUE: Helical axial images of the head were obtained without IV contrast. Automated exposure control was utilized for the study. A dose lowering technique was utilized adhering to the principles of ALARA. FINDINGS: No acute intracranial hemorrhage, midline shift or mass effect is present. White matter hypodensities favor small vessel disease. The ventricular system is unremarkable. The basal cisterns are patent. No extra-axial collections are present. There are no findings to suggest acute dural sinus thrombosis or acute territorial infarct. No significant calvarial abnormalities are present. There is trace fluid within the left mastoid air cells. IMPRESSION: No acute intracranial findings. ACT 112: Negative or not required by law. Electronically signed by: Mario Manriquez M.D. 01/16/2024 3:56 PM Brain MRI 01/17/24 00:00 MRI OF THE BRAIN COMBO CLINICAL HISTORY: Vertigo COMPARISON STUDY: CT of the brain dated 01/16/2024. TECHNIQUE: MRI of the brain was performed utilizing various T1 and T2-weighted sequences in the axial, sagittal, and coronal planes. Contrast-enhanced sequences were acquired following the administration of 6 cc of Gadavist. FINDINGS: Brain parenchyma: There is [id number] microangiopathic change. There is no hemorrhage or mass effect. There is no restricted diffusion to suggest acute ischemia. No enhancing mass lesion is identified on the postcontrast images. Ventura-white matter differentiation is preserved. No extra-axial fluid collection is seen. The cerebellar tonsils are normal in configuration. Ventricles, sulci, and cisterns: Normal in configuration. Pituitary and sella: Unremarkable. Intracranial vasculature: Normal flow voids are maintained at the skull base. Orbits: The bony orbits are grossly intact. Orbital contents are normal in appearance noting bilateral colobomas. Sinuses and mastoids: There are bilateral mastoid effusions, left larger than right. The paranasal sinuses are clear. Calvarium: Unremarkable. Cervical cord: Partially visualized cervical spinal cord is normal in morphology and signal intensity. IMPRESSION: No acute intracranial abnormality is identified. ACT 112: Negative or not required by law. Electronically signed by: King Barton M.D. 01/17/2024 10:25 AM Hospital Course (1) Benign paroxysmal positional vertigo of right ear: (2) Pre-diabetes: (3) Hypokalemia: Plan Patient is a 68-year-old female who presented to the ED with acute onset of vertigo and ataxia. CT head with no acute abnormality. MRI brain was negative. She was started on meclizine and valium with resolution of her vertigo. She feels fine and anxious to go home. She was able to turn her head sideways without any vertigo. She was able to ambulate independently without any vertigo or dizziness. She has been tolerating diet without any nausea or vomiting. Vestibular therapy was consulted but since her symptoms are essentially resolved, that would be less useful. She will be discharged on meclizine. She will follow up with PCP with referral to vestibular therapy if symptoms are to recur. She is stable for discharge home. Also recommended carb controlled diet and follow up with PCP for her prediabetes. Total Time Total Time Spent Total Time Spent (In Minutes): 35 Discharge Plan Discharge Items Patient Disposition: Home - Self-Care Reason For Visit: BPV Discharge Diagnosis: BPV Activity: Resume your previous activity Non-emergency contact: Primary Care Provider Call non-emergency contact if: you have any medication questions and your symptoms worsen Follow-up/Referrals: Terence Coombs MD [Primary Care Provider] - Diet: Regular and Carb Consistent or DM2 Addtl Attending Provider Instructions: You can take meclizine three times daily for your vertigo Recommend carb controlled diet as discussed for your prediabetes Follow up with your family doctor for your vertigo and prediabetes Pending Studies at Discharge: No Stand-Alone Forms: My [facility] [address], Smoking Cessation Medications and DC Order Prescriptions: New meclizine 25 mg Tablet 25 mg PO TID PRN (Reason: vertigo) 3 Days Qty: 9 0RF Continued multivitamin [Multi-Vitamins] Tablet 1 tab PO DAILY loratadine [Claritin] 10 mg Tablet 10 mg PO DAILY Rx Instructions: OTC Hair,Skin and Nails 1 tab PO DIRECTED Rx Instructions: otc, unknown dose. apple cider vinegar 1 cap PO DIRECTED Rx Instructions: otc, unknown dose. Discharge Orders: Discharge Order (Routine); Ordered 01/17/24 Ordered By: Angel Larsen Admission Data Admit Date/Time: 01/16/24 19:44 Attending Provider: Angel Larsen Admit Provider: Efren Pritchett Primary Care Provider: Terence Coombs. Other Providers: Efren Pritchett
[2024-01-17 15:21] VITALS: BP 140/79; RESP 20; TEMP 98.2; O2SAT 95
[2024-01-17] MEDS ORDERED: HEPARIN SOD 5,000 UNIT/0.5 ML VIAL SQ SCH (21:00)
== END 2024-01-17 16:45 | disposition home or self-care (01) ==
LOC: 2N 14:41 → ED 14:41 → SUATTDRO 19:44 → 2N 21:00